=== PATIENT | male | born 1980 | race African-American/Black ===

== ENCOUNTER 2020-02-10 19:37 | Emergency (ER) | payer BC ==
--- OUTSIDE RECORDS SUMMARY | 2020-02-10 19:39 | XMS REPORT | Summary of Care ---
:1980 Author Organization [facility] - Health Address [address] [place] [address] Care Team Providers Name Role Phone Pcp, Patient Does Not Have A Primary Care Provider [phone] Encounter Details Date Type Department Care Team Description 01/11/2020 Orders Only [facility] Doctor Unassigned, No [address] [facility] [place] [address] [address] [place] [address] Allergies No Known Allergiesdocumented as of this encounter (statuses as of 01/11/2020) Medications No known medicationsdocumented as of this encounter (statuses as of 01/11/2020) Active Problems Problem Noted Date Depression 10/03/2012 documented as of this encounter (statuses as of 01/11/2020) Immunizations Name Administration Dates Next Due TDAP 08/11/2015 documented as of this encounter Social History Tobacco Use Types Packs/Day Years Used Date Current Every Day Smoker Cigars 1 21 Smokeless Tobacco: Never Used Comments: 5 cigars a day for 16 years Alcohol Use Drinks/Week oz/Week Comments Yes rarely Sex Assigned at Date Recorded Not on file documented as of this encounter Last Filed Vital Signs Not on filedocumented in this encounter Plan of Treatment Health Maintenance Due Date Last Done Comments Depression Screening 1990 INFLUENZA VACCINE (#1) 2020 DTaP,Tdap,and Td Vaccines (2 - Td) 08/10/2025 08/11/2015 PNEUMOCOCCAL 0-64 YEARS COMBINED Aged Out No longer eligible based on SERIES patient's age to complete this topic documented as of this encounter Procedures Procedure Name Priority Date/Time Associated Diagnosis Comme nts ASSIGNMENT OF BENEFITS Routine 01/11/2020 12:37 PM CDT documented in this encounter Results Not on filedocumented in this encounter Insurance Payer Benefit Plan Subscriber ID Effective Dates Phone Address Type / Group [place] [id number] 2018-[employer] [phone] [address] PPO/POS [place] [id number] [place] [address] BCBS OF BCBS [facility] [id number] 2018-[employer] [phone] [address] PPO/POS [facility] [id number] [place] [address] documented as of this encounter
--- OUTSIDE RECORDS SUMMARY | 2020-02-10 19:40 | XMS REPORT | Summary of Care ---
:1980 Author Organization [facility] Address [address] [place] [address] Care Team Providers Name Role Phone Pcp, Patient Does Not Have A Primary Care Provider [phone] Reason for Visit Reason Comments Ear Pain Encounter Details Date Type Department Care Team Description 01/15/2020 Urgent Care [facility] Unknown, Attending Acut e swimmer's ear of right side (Primary Dx); [facility] Rodrigo Huang, [facility] [address] [facility] [place] [address] [address] Swelling of right external ear [address] [place] [address] Allergies No Known Allergiesdocumented as of this encounter (statuses as of 01/15/2020) Medications Medication Sig Dispensed Refills Start Date End Date Status ciprofloxacin-dexamet Place 4 Drops in 7.5 mL 0 01/11/2020 01/18/2020 Active hasone 0.3-0.1 % otic right ear 2 (two) dropsIndications: times daily for 7 Acute swimmer's ear days. of right side mupirocin 2 % Apply to area(s) 30 g 0 01/11/2020 020 Active ointmentIndications: 2 (two) times Friction blisters of daily as needed sole of right foot, (blister) for up initial encounter to 7 days. predniSONE 20 mg Take 1 tablet by 10 tablet 0 01/15/202001/19 Active tabletIndications: mouth 2 (two) Acute swimmer's ear times daily for 5 of right side days. documented as of this encounter (statuses as of 01/15/2020) Active Problems Problem Noted Date Depression 10/03/2012 documented as of this encounter (statuses as of 01/15/2020) Immunizations Name Administration Dates Next Due TDAP 08/11/2015 documented as of this encounter Social History Tobacco Use Types Packs/Day Years Used Date Current Every Day Smoker Cigars 1 21 Smokeless Tobacco: Never Used Comments: 5 cigars a day for 16 years Alcohol Use Drinks/Week oz/Week Comments Yes rarely Sex Assigned at Date Recorded Not on file COVID-19 Exposure Response Date Recorded In the last month, have you been in contact with No / Unsure 01/15/2020 8:41 AM CDT someone who was confirmed or suspected to have Coronavirus / COVID-19? documented as of this encounter Last Filed Vital Signs Vital Sign Reading Time Taken Comments Blood Pressure 128/78 01/15/2020 8:54 AM CDT Pulse 73 01/15/2020 8:54 AM CDT Temperature 36.8 C (98.3 F) 01/15/2020 8:54 AM CDT Respiratory Rate 18 01/15/2020 8:54 AM CDT Oxygen Saturation 99% 01/15/2020 8:54 AM CDT Inhaled Oxygen Concentration - - Weight 87.5 kg (192 lb 14.4 oz) 01/15/2020 8:54 AM CDT Height 175.3 cm (5' 9") 01/15/2020 8:54 AM CDT Body Mass Index 28.49 01/15/2020 8:54 AM CDT documented in this encounter Patient Instructions Patient InstructionsRodrigo Huang FNP - 01/15/2020 8:30 AM CDT Patient Education External Ear Infection (Adult) External otitis (also called swimmers ear) is an infection in the ear canal. It is often caused by bacteria or fungus. It can occur a few days after water gets trapped in the ear canal (from swimming or bathing). It can also occur after cleaning too deeply in the ear canal with a cotton swab or other object. Sometimes, hair care products get into the ear canal and cause this problem. Symptoms can include pain, fever, itching, redness, drainage, or swelling of the ear canal. Temporary hearing loss may also occur. Home care Do not try to clean the ear canal. This can push pus and bacteria deeper into the canal. Use prescribed ear drops as directed. These help reduce swelling and fight the infection. If an ear wick was placed in the ear canal, apply drops right onto the end of the wick. The wick will draw the medicine into the ear canal even if it is swollen closed. A cotton ball may be loosely placed in the outer ear to absorb any drainage. You may use acetaminophen or ibuprofen to control pain, unless another medicinewas prescribed. Note: If you have chronic liver or kidney disease or ever had a stomach ulcer or GI bleeding, talk toyour healthcare provider before taking any of these medicines. Do not allow water to get into your ear when bathing. Also, don't swim until the infection has cleared. Prevention Keep your ears dry. This helps lower the risk of infection. Dry your ears with a towel or instructor hairspring after getting wet. Also, use ear plugs when swimming. Do not stick any objects in the ear to remove wax. If you feel water trapped in your ear, use ear drops right away. You can get these drops over thecounter at most drugstores. They work by removing water from the ear canal. Follow-up care Follow up with your healthcare provider in 1 week, or as advised. When to seek medical advice Call your healthcare provider right away if any of these occur: Ear pain becomes worse or doesnt improve after 3 days of treatment Redness or swelling of the outer ear occurs or gets worse Headache Painful or stiff neck Drowsiness or confusion Fever of 100.4F (38C) or higher, or as directed by your healthcare provider Edgar [employer] last reviewed this educational content on 03/12/201719992195-5539 [employer]. [address] [place] [address], [place] [address]. All rights reserved. This information is not intended as a substitute for professional medical care. Always follow your healthcare professional's instructions. documented in this encounter Progress Notes Rodrigo Huang FNP - 01/15/2020 8:30 AM CDT Cc: Chief Complaint Patient presents with Ear Pain Americo Musa is a 39 year old male. Patient complains of right ear pain for 1 week. He was seen in last week and was prescribed Ciprodex otic drops. He applied the dose once and now returns to . He denies fever, cough or sore throatat this time. Patient denies pain now but still complains of swelling. He uses ear plugs at work. Allergies Americo has No Known Allergies. Medications Outpatient Medications Prior to Visit Medication Sig Dispense Refill ciprofloxacin-dexamethasone 0.3-0.1 % otic drops Place 4 Drops in right ear 2 (two) times daily for 7 days. 7.5 mL 0 mupirocin 2 % ointment Apply to area(s) 2 (two) times daily as needed (blister) for up to 7 days. 30 g 0 No facility-administered medications prior to visit. Histories Past Medical History: Diagnosis Date Depression 10/03/2012 No past surgical history on file. 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 Employer: [employer] Social Needs Financial resource strain: Not on file Food insecurity Worry: Not on file Inability: Not on file Transportation needs Medical: Not on file Non-medical: Not on file Tobacco Use Smoking status: Current Every Day Smoker Packs/day: 1.00 Years: 21.00 Pack years: 21.00 Types: Cigars Smokeless tobacco: Never Used Tobacco comment: 5 cigars a day for 16 years Substance and Sexual Activity Alcohol use: Yes Comment: rarely Drug use: No Sexual activity: Yes Partners: Female Lifestyle Physical activity Days per week: Not on file Minutes per session: Not on file Stress: Not on file Relationships Social connections Talks on phone: Not on file Gets together: Not on file Attends alevism service: Not on file Active member of club or organization: Not on file Attends meetings of clubs or organizations: Not on file Relationship status: Not on file Intimate partner violence Fear of current or ex partner: Not on file Emotionally abused: Not on file Physically abused: Not on file Forced sexual activity: Not on file Other Topics Concern Not on file Social History Narrative Not on file Family History Problem Relation Age of Onset Diabetes Mother Diabetes Maternal Grandmother Diabetes Maternal Grandfather Cancer Maternal Grandfather prostate Coronary Heart Disease NoFHx Review of Systems Constitutional: Negative. HENT: Positive for ear pain. Eyes: Negative. Respiratory: Negative. Breasts: Negative. Cardiovascular: Negative. Gastrointestinal: Negative. Genitourinary: Negative. Musculoskeletal: Negative. Skin: Negative. Neurological: Negative. Negative for dizziness. Psychiatric/Behavioral: Negative. Endocrine: Endocrine negative Vital Signs BP 128/78 | Pulse 73 | Temp 36.8 C (98.3 F) (Oral) | Resp 18 | Ht 5' 9" (1.753 m) | Wt 192 lb 14.4 oz (87.5 kg) | SpO2 99% | BMI 28.49 kg/m Physical Exam Constitutional: Appearance: He is normal weight. HENT: Right Ear: Swelling present. Tympanic membrane is erythematous. Left Ear: Tympanic membrane normal. Neurological: Mental Status: He is alert. Assessment/Plan 1. Acute swimmer's ear of right side Please start and finish abx completely - predniSONE 20 mg tablet; Take 1 tablet by mouth 2 (two) times daily for 5 days. Dispense: 10 tablet; Refill: 0 2. Swelling of right external ear - Patient advised on frequent effective handwashing - Patient was advised not to place anything in the ear such as q tips or cotton swabs - Reviewed with patient potential side effects, drug interactions, risk, and benefits of taking prescriptions as ordered as prescribed - Patient was advised to not swim until symptoms resolve and use of ear plugs may be helpful - Patient advised to administer Tylenol or Ibuprofen as per label recommendation as needed for pain or fever - AVS and Written/handout materials appropriate to problem and teaching provided. - Paitent advised to follow up with PCP within 1 week. - Patient advised to return to Urgent Care or go to the nearest Emergency Department sooner for any new, worsening,persistent, or concerning symptoms - Patient verbalized understanding of all instructions This visit did not involve counseling and coordination that comprised more than 50% of the visit time. Piper Diallo MA - 01/15/2020 8:30 AM MARIA AArabellaalanna Musa is a 39 year old male is here for right ear pain. Allergies reviewded and provider will review meds. documented in this encounter Plan of Treatment Health Maintenance Due Date Last Done Comments INFLUENZA VACCINE (#1) 2020 Depression Screening 01/10/2021 01/11/2020 DTaP,Tdap,and Td Vaccines (2 - Td) 08/10/2025 08/11/2015 PNEUMOCOCCAL 0-64 YEARS COMBINED Aged Out No longer eligible based on SERIES patient's age to complete this topic documented as of this encounter Results Not on filedocumented in this encounter Visit Diagnoses Diagnosis Acute swimmer's ear of right side - Prim wild Swelling of right external ear documented in this encounter Insurance Payer Benefit Plan Subscriber ID Effective Dates Phone Address Type / Group [facility] [id number] 2018-Jenny [phone] [address] PPO/POS [place] [id number] [place] [address] documented as of this encounter
--- OUTSIDE RECORDS SUMMARY | 2020-02-10 19:40 | XMS REPORT | Summary of Care ---
:1980 Author Organization [facility] Address [address] [place] [address] Care Team Providers Name Role Phone Pcp, Patient Does Not Have A Primary Care Provider +[id number] 0-0000 Reason for Visit Reason Comments New Patient rt foot (Routine) Status Reason Specialty Diagnoses / Referred By Referred To Procedures Contact Contact Closed Orthopedic Surgery Diagnoses Friction blisters of sole of right foot, initial encounter [place], Procedures CONSULT/REFERRAL PODIATRY [place] [address] [address] Encounter Details Date Type Department Care Team Description 01/31/[address] [facility] CisnerosMalu Tinea pedis of right Orthopaedic Surgery- Mig[place], DP M foot (Primary Dx) [address] [place] [address] [facility] [phone] [place] [address] Allergies No Known Allergiesdocumented as of this encounter (statuses as of 01/31/2020) Medications Medication Sig Dispensed Refills Start Date End Date Status clotrimazole-betamethas Apply to area(s) 45 g 2 01/31/20 20 Active one creamIndications: 2 (two) times Tinea pedis of right daily. foot documented as of this encounter (statuses as of 01/31/2020) Active Problems Problem Noted Date Depression 10/03/2012 documented as of this encounter (statuses as of 01/31/2020) Immunizations Name Administration Dates Next Due TDAP [...] Sign Reading Time Taken Comments Blood Pressure - - Pulse - - Temperature 36 C (96.8 F) 01/31/2020 3:59 PM CDT Respiratory Rate - - Oxygen Saturation - - Inhaled Oxygen Concentration - - Weight 84.9 kg (187 lb 3.2 oz) 01/31/2020 3:59 PM CDT Height 175.3 cm (5' 9") 01/31/2020 3:59 PM CDT Body Mass Index 27.64 01/31/2020 3:59 PM CDT documented in this encounter Progress Notes Malu Cisneros DPM - 01/31/2020 4:00 PM CDT Chief Complaint: Blister, right foot Referring Provider: Dr. Huang History of Present Illness: Americo Musa, is a 39 year old, male, who presents to clinic with complaints of friction blisters to his right foot. He states it used to itch. He was prescribed mupirocin 2% ointment which he says helped, but the blistering is recurrent. 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 Allergies: Patient has no known allergies. REVIEW OF SYSTEMS Constitutional: no fever, no chills Eyes: no changes in vision ENMT: no sore throat, no congestion Cardiovascular: no chest pain Respiratory: no cough, no shortness of breath Gastrointestinal: no nausea, no vomiting, no diarrhea Genitourinary: no dysuria Integumentary: no itching, no rashes Neurological: no headaches, no seizures Hematologic/lymphatic: no bruising or bleeding tendencies . Physical Exam: Temp 36 C (96.8 F) (Temporal Artery) | Ht 5' 9" (1.753 m) | Wt 187 lb 3.2 oz (84.9 kg) | BMI 27.64 kg/m Body mass index is 27.64 kg/m. General: alert, awake, oriented x 3, appearing age appropriate, no apparent distress. Skin: skin color, texture, and turgor are normal. Specific Physical Exam/Lower Extremity Pedal Exam: VASC: Dorsalis pedis and posterior tibial pulses are +2/4 Capillary refill: <3 seconds at all tested digits Temperature: normal Edema: absent Varicosities: none DERM: Appearance of skin: tinea pedis to right plantar foot, scaling peeling skin Pedal hair growth: present Soft tissue envelope: normal Nails: WNL Open lesions: none Rashes: none NEURO: Epicritic sensation: intact MSK: Muscle strength for all LE DF/PF/EV/INV: Right 5/5 , Left 5/5 AJ ROM: full , bilateral with no pain or crepitus noted. Pedal Deformities: none noted Assessment: ICD-10-CM ICD-9-CM 1. Tinea pedis of right foot B35.3 110.4 Plan: Patient evaluated and examined Condition and treatment plan discussed in detail with patient Keep feet clean and dry by changing out socks frequently and disinfecting shoes at night Rx: Lotrisone cream to be applied BID to affected areas RTC prn Scribe's Attestation Julio C Mcmahon , am scribing for, and in the presence of, Malu Cisneros DPM who performed the services described here-in. Julio C Carver, January 31, 2020, 4:06 PM Physician's Attestation Malu Mcmahon DPM, personally performed and/or ordered the services described in this documentation made by the Scribe in my presence, and it is both accurate and complete. All medical record entries made by the Scribe were at my direction and personally dictated by me. I have reviewed the chart and agree that the record accurately reflects my personal performance of the history, physical exam, assessment and plan. Malu Cisneros DPM Head Of Music Podiatric Medicine and Surgery Department of Orthopaedic Surgery & Rehabilitation 01/31/20 4:09 PM documented in this encounter Plan of Treatment Health Maintenance Due Date Last Done Comments Depression Screening 1990 INFLUENZA VACCINE (#1) 2020 DTaP,Tdap,and Td Vaccines (2 - Td) 08/10/2025 08/11/2015 PNEUMOCOCCAL 0-64 YEARS COMBINED Aged Out No longer eligible based on SERIES patient's age to complete this topic documented as of this encounter Results Not on filedocumented in this encounter Visit Diagnoses Diagnosis Tinea pedis of right foot - Primary Dermatophytosis of foot documented in this encounter Insurance Payer Benefit Plan Subscriber ID Effective Dates Phone Address Type / Group [facility] [id number] 2018-Jenny [phone] [address] PPO/POS [place] [id number] [place] [address] documented as of this encounter
--- OUTSIDE RECORDS SUMMARY | 2020-02-10 19:40 | XMS REPORT | Summary of Care ---
:1980 Author Organization [facility] Address [address] [place] [address] Care Team Providers Name Role Phone Pcp, Patient Does Not Have A Primary Care Provider +1-000-00 0-0000 Reason for Referral (Routine) Status Reason Specialty Diagnoses / Referred By Referred To Procedures Contact Contact New Request Orthopedic Surgery Diagnoses Friction blisters of sole of right foot, initial encounter Sal Procedures CONSULT/REFERRAL PODIATRY BE Wallace [address] [address] Reason for Visit Reason Comments Blister on feet for 2 yrs Encounter Details Date Type Department Care Team Description 01/11/2020 Urgent Care [facility] Unknown, Attending Tiffany forbesmer's ear of right side (Primary Dx); [facility] Urgent [facility] Rodrigo Huang FNP [address] [address] Friction blisters of sole of right foot, initial encounter; [address] [place] [address] Allergies No Known Allergiesdocumented as of this encounter (statuses as of 01/11/2020) Medications Medication Sig Dispensed Refills Start Date [...] for up initial encounter to 7 days. documented as of this encounter (statuses [...] been in contact with No / Unsure 01/11/2020 12:56 PM CDT someone who was confirmed or suspected to have Coronavirus / COVID-19? documented as of this encounter Last Filed Vital Signs Vital Sign Reading Time Taken Comments Blood Pressure 128/82 01/11/2020 12:54 PM CDT Pulse 68 01/11/2020 12:54 PM CDT Temperature 36.9 C (98.4 F) 01/11/2020 12:54 PM CDT Respiratory Rate 18 01/11/2020 12:54 PM CDT Oxygen Saturation 98% 01/11/2020 12:54 PM CDT Inhaled Oxygen Concentration - - Weight 87.5 kg (193 lb) 01/11/2020 12:54 PM CDT Height - - Body Mass Index 28.5 11/08/2013 11:03 AM CDT documented in this encounter Patient Instructions Patient InstructionsRodrigo Huang FNP - 01/11/2020 12:30 PM CDT Patient Education Blister (Adult) A blister is a raised area of skin with often clear fluid inside. Sometimes the fluid is bloody. A blister can occur when the skin is damaged. Blisters can hurt when they are pressed, or if they break open. Blisterscan be caused in many ways. This can happen if the skin is rubbed too hard or often. Or they can occur if the skin is hurt by a burn, an allergen such as poison cody, the sun, a virus, or evena medicine. Some skin diseases can also cause blisters. Most blisters need little treatment. They often dry up and go away in a few days to weeks after the cause is stopped. A blister may need to be cleaned. A broken (open) blister may be bandaged to prevent infection. Blisters caused by insect bites or medicine reactions may be more serious. These should be looked at by a healthcare provider. Home care Your healthcare provider may prescribe pain medicine. He or she may also prescribe an antibiotic cream or ointment to put on an open blister. Follow all instructions when using these medicines. General care: Follow all instructions on how to care for the blister. If a bandage was put on, change the bandage as instructed. . If the blister breaks, the area will leak a clear or sometimes a bloody fluid for a day or two. Wash the area with soap and water every day or as advised by yourhealthcare provider. Don't remove the "roof" of the blister. This part protects the raw skin as it heals. You may use [id number] pain medicines to control pain, unless anothermedicine was prescribed.If you have chronic liver or kidney disease, talk with your healthcare provider before using these medicines. Also talk with your provider if you've had a stomach ulcer or gastrointestinal bleeding. Follow-up care Follow up with yourhealthcare provider, or as advised. When to seek medical advice Call yourhealthcare provider right awayif any of these occur: Fever of 100.4F (38C) or higher Redness or swelling that is new or gets worse Foul-smelling fluid leaking from the blister Pain doesnt go away, or gets worse Increase in size of the blister Blister doesnt get better after several days New blisters appear [employer] last reviewed this educational content on 01/10/201919995391-1412 [employer]. [address] [place] [address], [place] [address]. All rights reserved. This information is not intended as a substitute for professional medical care. Always follow your healthcare professional's instructions. documented in this encounter Progress Notes SalRodrigo, BE - 01/11/2020 12:30 PM CDT Cc: Chief Complaint Patient presents with Blister on feet for 2 yrs Americo Musa is a 39 year old male. Patient reports intermitent blisters on right foot for 2 years. He states when the blister rupture aclear substance expels from sole of the foot. Denies pus or purulent drainage. Within the last 3 days patient has developed right ear pain and swelling. He states that he uses ear plugs and sweats and his ears stay moist because of that. Denies cough, fever or sore throat at this time. Allergies Americo has No Known Allergies. Medications No outpatient medications prior to visit. No facility-administered medications prior to visit. Histories Past Medical History: Diagnosis Date Depression 10/03/2012 No past surgical history on file. 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 Breasts: Negative. Cardiovascular: Negative. Gastrointestinal: Negative. Negative for abdominal distention. Genitourinary: Negative. Musculoskeletal: Negative. Skin: Callus/ blister on right sole of foot Neurological: Negative. Psychiatric/Behavioral: Negative. Endocrine: Endocrine negative Vital Signs BP 128/82 | Pulse 68 | Temp 36.9 C (98.4 F) (Oral) | Resp 18 | Wt 193 lb (87.5 kg) | SpO2 98% | BMI 28.50 kg/m Physical Exam Constitutional: Appearance: He is normal weight. HENT: Right Ear: Swelling present. Tympanic membrane is erythematous. Feet: Right foot: Skin integrity: Blister and callus present. Toenail Condition: Fungal disease present. Neurological: Mental Status: He is alert. Assessment/Plan 1. Acute swimmer's ear of right side - ciprofloxacin-dexamethasone 0.3-0.1 % otic drops; Place 4 Drops in right ear 2 (two) times daily for 7 days. Dispense: 7.5 mL; Refill: 0 2. Friction blisters of sole of right foot, initial encounter - CONSULT/REFERRAL PODIATRY - mupirocin 2 % ointment; Apply to area(s) 2 (two) times daily as needed (blister) for up to 7 days. Dispense: 30 g; Refill: 0 Insoles in shoes recommended and epsom salt soaks recommended - Patient advised on frequent effective handwashing [...] more than 50% of the visit time. Giovanni stephenson - 01/11/2020 12:30 PM CDT Americo Musa is a 39 year old male Chief Complaint Patient presents with Blister on feet for 2 yrs Vitals: 01/11/20 1254 BP: 128/82 Pulse: 68 Resp: 18 Temp: 36.9 C (98.4 F) TempSrc: Oral SpO2: 98% Weight: 193 lb (87.5 kg) [id number] [place] [place] - [address] [facility] [address] [facility] All Vitals taken, allergies and all medications reviewed, fall risk assessed. Pain level 0 Blisters on feet x 2 YEARS. PT states " i had these blisters on my feet 2 yrs and Im tired ogf dealing with them, so i came today to get them looked at" . documented in this encounter Plan of Treatment [...] ear of right side - Prim wild Friction blisters of sole of right foot, initial encounter Callus of foot Corns and callosities documented in this encounter Insurance Payer Benefit Plan Subscriber ID Effective Dates Phone Address Type / Group [facility] [id number] 2018-Jenny [phone] [address] PPO/POS [place] t 7 [id number] [place] [address] documented as of this encounter
--- OUTSIDE RECORDS SUMMARY | 2020-02-10 19:40 | XMS REPORT | Summary of Care ---
:1980 Author Organization [facility] Address [address] [place] [address] Care Team Providers Name Role Phone Pcp, Patient Does Not Have A Primary Care Provider +1-000-00 0-0000 Reason for Visit Reason Comments New Patient rt foot (Routine) Status Reason Specialty Diagnoses / Referred By Referred To Procedures Contact Contact Closed Orthopedic Surgery Diagnoses Friction blisters of sole of right foot, initial encounter [place], Procedures CONSULT/REFERRAL PODIATRY BE Wallace [address] [address] Encounter Details Date Type Department Care Team Description 01/31/2020 Office Visit [facility] CisnerosMalu Tinea pedis of right Orthopaedic Surgery- Migdalia, DP M foot (Primary Dx) [address] [place] [address] [facility] [phone] [place] [address] Allergies No Known Allergiesdocumented as [...] Not on file 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 Julio C aCrver, January 31, 2020, 4:06 PM Physician's Attestation [...] exam, assessment and plan. Malu Cisneros DPM General Sales Manager Podiatric Medicine and Surgery Department of Orthopaedic [...] Effective Dates Phone Address Type / Group [facility] [id number] 2018-Jenny [phone] [address] PPO/POS [place] t [id number] [place] [address] documented as of this encounter
--- OUTSIDE RECORDS SUMMARY | 2020-02-10 19:40 | XMS REPORT | Continuity of Care Document ---
:1980 Author Organization [facility] t Address [address] [place] [address] Dr. Ivory [address] [place] [address] Care Team Providers Name Role Phone Migdalia Cisneros DPM Attending Clinician Problems This patient has no known problems. Allergies, Adverse Reactions, Alerts This patient has no known allergies or adverse reactions. Medications This patient has no known medications. Procedures This patient has no known procedures. Encounters Start End Encounter Admission Attending Care Care Encounter Source Date/Time Date/Time Type Type Clinicians Facility Department ID 2020-01-31 2020-01-31 Office JULIENNE Cisneros [id number] 15:49:52 16:09:17 Visit [facility] [id number] Migdalia [place] [id number] [place] AT [phone] JEWEL Cardoso [facility] Results This patient has no known results.
--- NOTE | 2020-02-10 20:22 | EDPHYS ---
Physician Documentation [facility] Name: Americo Musa Age: 39 yrs Sex: Male : 1980 Arrival Date: 02/10/2020 Time: 19:43 Bed 8 Private MD: ED Physician Tam Carlos HPI: 02/09 20:19 This 39 yrs old Black Male presents to ER via Ambulatory with complaints of Boil - pm1 under testicle. 20:19 The patient presents with a boil of the perineum. Description: raised. Onset: The pm1 symptoms/episode began/occurred 1 month(s) ago. Possible cause(s): shaving. Associated signs and symptoms: Pertinent negatives: fever. Severity of symptoms: in the emergency department the symptoms have improved. The patient has not experienced similar symptoms in the past. Historical: - Allergies: 19:52 No Known Allergies; ss - Home Meds: 19:52 None [Active]; ss - PMHx: 19:52 None; ss - PSHx: 19:52 None; ss - Immunization history:: Adult Immunizations up to date. - Social history:: Smoking status: Patient reports the use of cigarette tobacco products, cigars. ROS: 20:19 Constitutional: Negative for fever, chills, and weight loss, Cardiovascular: Negative pm1 for chest pain, palpitations, and edema, Respiratory: Negative for shortness of breath, cough, wheezing, and pleuritic chest pain, Abdomen/GI: Negative for abdominal pain, nausea, vomiting, diarrhea, and constipation, Back: Negative for injury and pain, : Negative for injury, bleeding, discharge, and swelling, MS/Extremity: Negative for injury and deformity. 20:19 Skin: Positive for of the perineum, boil. Exam: 20:19 Constitutional: This is a well developed, well nourished patient who is awake, alert, pm1 and in no acute distress. Head/Face: Normocephalic, atraumatic. 20:19 MS/ Extremity: Pulses equal, no cyanosis. Neurovascular intact. Full, normal range of motion. 20:19 Cardiovascular: Exam negative for acute changes, Rate: normal, Rhythm: regular, Pulses: no pulse deficits are appreciated. 20:19 Respiratory: Exam negative for acute changes, respiratory distress, shortness of breath. 20:19 Abdomen/GI: Exam negative for acute changes, Inspection: abdomen appears normal, Palpation: abdomen is soft and non-tender, in all quadrants. 20:19 : gaviota Schmitt RN. Phlegmon present to perineum without any fluctuance, surrounding cellulitis, pointing or drainage. 20:19 Skin: Appearance: normal except for affected area, see exam. Vital Signs: 19:50 BP 164 / 99; Pulse 90; Resp 15; Temp 98.1; Pulse Ox 98% on R/A; Weight 84.82 kg; Height ss 5 ft. 9 in. (175.26 cm); Pain 7/10; 20:28 BP 130 / 92; Pulse 85; Resp 19; Pulse Ox 99% ; rr5 19:50 Body Mass Index 27.61 (84.82 kg, 175.26 cm) ss MDM: 19:54 Patient medically screened. pm1 20:19 Data reviewed: vital signs. Data interpreted: Pulse oximetry: on room air is 98 %. pm1 Interpretation: normal. Counseling: I had a detailed discussion with the patient and/or guardian regarding: the historical points, exam findings, and any diagnostic results supporting the discharge/admit diagnosis, the need for outpatient follow up, a general surgeon, a urologist, to return to the emergency department if symptoms worsen or persist or if there are any questions or concerns that arise at home. 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 02/09 20:12 Order name: Glucose, Ancillary Testing; Complete Time: 20:14 EDMS Administered Medications: 20:26 Drug: Bactrim (160 mg-800 mg (DS) 1 tablet Route: PO; rr5 20:36 Follow up: Response: Medication administered at discharge. 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 Exp: rr5 08/14/2022. Lot #: [id number]. } Route: IM; Site: left deltoid; 20:36 Follow up: Response: Medication administered at discharge. rr5 Disposition: 21:22 Co-signature as Attending Physician, aTm Carlos MD. pkl Disposition: 02/10/20 20:21 Discharged to Home. Impression: Furuncle of groin. - Condition is Stable. - Discharge Instructions: Skin Abscess. - Prescriptions for Bactrim DS 800- 160 mg Oral Tablet - take 1 tablet by ORAL route every 12 hours for 10 days; 20 tablet. - Medication Reconciliation Form, Thank You Letter, Antibiotic Education, Prescription Opioid Use form. - Follow up: Emergency Department; When: As needed; Reason: Worsening of condition. Follow up: Private Physician; When: 2 - 3 days; Reason: Recheck today's complaints, Continuance of care, Re-evaluation by your physician. - Problem is new. - Symptoms have improved. Signatures: Tam Carlos MD MD pkl Smirch, Shelby, RN RN ss Dmitri Calabrese, DISTRIBUTED ENERGY SYSTEMS CONSULTANT DISTRIBUTED ENERGY SYSTEMS CONSULTANT pm1 Abdulkadir Archibald RN RN rr5 Corrections: (The following items were deleted from the chart) 20:36 20:21 02/10/2020 20:21 Discharged to Home. Impression: Furuncle of groin. Condition is rr5 Stable. Forms are Medication Reconciliation Form, Thank You Letter, Antibiotic Education, Prescription Opioid Use. Follow up: Emergency Department; When: As needed; Reason: Worsening of condition. Follow up: Private Physician; When: 2 - 3 days; Reason: Recheck today's complaints, Continuance of care, Re-evaluation by your physician. Problem is new. Symptoms have improved. pm1
--- NOTE | 2020-02-10 20:22 | ER ---
Nurse's Notes [facility] Name: Americo Musa Age: 39 yrs Sex: Male : 1980 Arrival Date: 02/10/2020 Time: 19:43 Bed 8 Private MD: Diagnosis: Furuncle of groin Presentation: 02/09 19:50 Chief complaint: Patient states: perirectal abscess x 1 month. Pt reports purulent ss drainage. Coronavirus screen: Client denies travel out of the [place] in the last 14 days. Ebola Screen: Patient denies exposure to infectious person. Patient denies travel to an Ebola-affected area in the 21 days before illness onset. Initial Sepsis Screen: Does the patient meet any 2 criteria? No. Patient's initial sepsis screen is negative. Does the patient have a suspected source of infection? No. Patient's initial sepsis screen is negative. Risk Assessment: Do you want to hurt yourself or someone else? Patient reports no desire to harm self or others. Onset of symptoms was January 10, 2020. 19:50 Method Of Arrival: Ambulatory ss 19:50 Acuity: THIAGO 3 ss Historical: - Allergies: 19:52 No Known Allergies; ss - Home Meds: 19:52 None [Active]; ss - PMHx: 19:52 None; ss - PSHx: 19:52 None; ss - Immunization history:: Adult Immunizations up to date. - Social history:: Smoking status: Patient reports the use of cigarette tobacco products, cigars. Screenin:01 Abuse screen: Denies threats or abuse. Denies injuries from another. Nutritional ca1 screening: No deficits noted. Tuberculosis screening: No symptoms or risk factors identified. Fall Risk None identified. Assessment: 20:01 General: Appears in no apparent distress. comfortable, Behavior is calm, appropriate ca1 for age. Pain: Complains of pain in perineum Pain currently is 7 out of 10 on a pain scale. Pain began a month ago. Neuro: Level of Consciousness is awake, alert, obeys commands, Oriented to person, place, time, situation. Derm: Skin is intact, is healthy with good turgor, Skin is pink, warm \T\ dry. Abscess located on perineum is raised, was lanced by patient prior to arrival. Musculoskeletal: Circulation, motion, and sensation intact. Capillary refill < 3 seconds. 20:35 Reassessment: Patient appears in no apparent distress at this time. Patient is alert, rr5 oriented x 3, equal unlabored respirations, skin warm/dry/pink. discharge instruction given and explained without complaints made. Vital Signs: 19:50 BP 164 / 99; Pulse 90; Resp 15; Temp 98.1; Pulse Ox 98% on R/A; Weight 84.82 kg; Height ss 5 ft. 9 in. (175.26 cm); Pain 7/10; 20:28 BP 130 / 92; Pulse 85; Resp 19; Pulse Ox 99% ; rr5 19:50 Body Mass Index 27.61 (84.82 kg, 175.26 cm) ss ED Course: 19:43 Patient arrived in ED. am2 19:46 Abdulkadir Archibald, CARA is Primary Nurse. rr5 19:52 Triage completed. ss 19:52 Arm band placed on right wrist. ss 19:54 Dmitri Calabrese NP is PHCP. pm1 19:54 Tam Carlos MD is Attending Physician. pm1 20:01 Patient has correct armband on for positive identification. Placed in gown. Bed in low ca1 position. Call light in reach. Side rails up X 1. Pulse ox on. NIBP on. Warm blanket given. 20:01 Patient did not have IV access during this emergency room visit. ca1 20:35 No provider procedures requiring assistance completed. rr5 Administered Medications: 20:26 Drug: Bactrim (160 mg-800 mg (DS) 1 tablet Route: PO; rr5 20:36 Follow up: Response: Medication administered at discharge. 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 Exp: rr5 08/14/2022. Lot #: [id number]. } Route: IM; Site: left deltoid; 20:36 Follow up: Response: Medication administered at discharge. rr5 Outcome: 20:21 Discharge ordered by . pm1 20:35 Discharged to home ambulatory. rr5 20:35 Condition: stable 20:35 Discharge instructions given to patient, Instructed on discharge instructions, follow up and referral plans. medication usage, Demonstrated understanding of instructions, follow-up care, medications, Prescriptions given X 1. 20:36 Patient left the ED. rr5 Signatures: Rosalba Leal, RN RN ss Dmitri Calabrese, SHIP RUNNER SHIP RUNNER pm1 Rosamaria Feliciano am2 Abdulkadir Archibald, RN RN rr5 Keshia Lott, CARA RN ca1
[2020-02-10] MEDS ORDERED: TETANUS & DIPHTHERIA TOX,ADULT 0.5 ML VIAL ONE (20:31)
[2020-02-10] MEDS ORDERED: SMZ./TMP. 800/160 MG TABLET ONE (20:33)
[2020-02-13 13:48] VITALS: TEMP 98.1
[2020-02-13 13:49] VITALS: BP 130/92; O2SAT 99
== END 2020-02-10 20:36 | disposition home or self-care (01) ==
LOC: ER 19:37
DX: L02.224 Furuncle of groin (principal); F17.290 Nicotine dependence, other tobacco product, uncomplicated; Z23 Encounter for immunization
CPT/HCPCS: 82947; 90471; 90714; 99283